=== PATIENT | male | born 1965 | race Caucasian/White ===

== ENCOUNTER 2020-10-09 18:08 | Emergency (ER) | payer SELFPAY ==
[2020-10-09] MEDS ORDERED: Ibuprofen 200 MG TAB ONE (19:21)
--- NOTE | 2020-10-09 20:08 | RAD ---
RIGHT ANKLE THREE VIEWS: Date: 10-09-2020 FINDINGS: There has been old trauma to this ankle and having old films would be very useful, but none were pres ent at the moment. The yo is in place, the fixing of prior fracture of the tibia. At the margin of t he film there appears to be a healed fracture of the fibular shaft. A fracture is seen through the tip of the lateral malleolus with some overlying soft tissue swelling. The ankle mortise is disrupted with widening of the tibial talar joint laterally. The assumption is that the distal fibular fracture is acute, along with a disruption of the ankle mortise. A large bony density posterior to the ankle joint appears old. So does some of the unusual articulation between t he posterior talus and calcaneus. IMPRESSION: Old trauma to the right ankle, but findings that presumably represent an acute fracture at the tip of the lateral malleolus with disruption of the ankle mortise and widening of the joint laterally. POS: HOME
== END 2020-10-09 20:25 | disposition home or self-care (01) ==
LOC: BURERS 18:08
DX: S82.61XA Displaced fracture of lateral malleolus of right fibula, initial encounter for closed fracture (principal); V49.40XA Driver injured in collision with unspecified motor vehicles in traffic accident, initial encounter
CPT/HCPCS: 99406